=== PATIENT | male | born 1935 | race Caucasian/White ===

== ENCOUNTER 2020-12-30 12:02 | Emergency (ER) | payer OTHER ==
[2020-12-30 12:39] VITALS: BP 160/61
[2020-12-30 12:45] VITALS: BP 160/61
[2020-12-30] MEDS ORDERED: LIDOCAINE 1% VIAL ONE (13:04)
--- NOTE | 2020-12-30 13:11 | DIREP ---
PROCEDURE:XRAY FINGER-RT COMPARISON:None. INDICATIONS:fall FINDINGS: BONES:Normal. JOINTS:Dislocation ring finger PIP joint. Distal fragment is dislocated dorsally. SOFT TISSUES:Normal. OTHER:No additional findings. CONCLUSION:Dislocation ring finger PIP joint. No fracture identified. Dictated by: Russel Haywood M.D. on 12/30/2020 at 01:05 PM
--- NOTE | 2020-12-30 13:41 | ER.PDOC ---
General Chief Complaint: Extremities Stated Complaint: INJURY ON RIGHT FINGER Time seen by MD: 13:33 Source: patient Exam Limitations: no limitations History of Present Illness Occurred: just prior to arrival Where: home Context: fall Location of Injury: (R) hand, (R) fingers Past Medical History Medical History: diabetes, high cholesterol, hypertension Surgical History: no surgical history Social History Alcohol Use: none Drug Use: none Reviewed Nursing Reviewed: Vital Signs, Abn. Noted Review of Systems All Other Systems: Reviewed and Negative Physical Exam General Appearance: Alert, No Apparent Distress Hand: see diagram, tenderness, limited ROM, deformity Wrist: nml inspection, non-tender, nml ROM 1 - TENDER 1 - TENDER Neuro: sensation nml, motor nml Vascular: no vascular compromise Tendons: tendon function nml Forearm/Elbow/Arm: uninjured above wrist Skin: warm/dry Head/ENT: nml inspection, pharynx nml Neck/Back: nml inspection, non-tender Resp/CVS: no resp distress, lungs clear, heart sounds nml, reg. rate & rhythm Abdomen: non-tender, no organomegaly Joint Reduction Joint Reduction : Joint Reduction Site: Finger Conscious Sedation: No Pre-Procedure NV Exam: Yes Post-Procedure NV Exam: Yes Post Joint Reduction Film: joint reduced Results/Orders Results/Orders Orders - UZMA MCCRAY MD Xr Finger Rt (12/30/20 12:40) Lidocaine Hcl (Lidocaine 1% Vial) (12/30/20 13:04) Vital Signs Date Time Temp Pulse Resp B/P (MAP) Pulse Ox O2 Delivery O2 Flow Rate FiO2 12/30/20 12:45 99.0 67 20 160/61 (94) 99 Room Air 12/30/20 12:39 99.0 67 20 99 12/30/20 12:39 99.0 67 20 ER DEPART Departure Time of Disposition: 14:00 Disposition: 01 HOME, SELF-CARE Impression: Primary Impression: Dislocation of PIP joint of finger Condition: Stable Referrals: ESPINOZA ARIAS (PCP) PRIMARY CARE PROVIDER Duration or Time Spent with Pa: UZMA OLEA MD December 30, 2020 13:41
--- NOTE | 2020-12-30 14:08 | DIREP ---
PROCEDURE:XRAY FINGER-RT COMPARISON:[facility], CR, XRAY FINGER-RT MIN 2 VIEWS, 12/30/2020, 12:50 PM. INDICATIONS:POST SETTING FINDINGS: BONES:No fracture identified. JOINTS:Reduction of right 4th PIP joint dislocation in satisfactory alignment. SOFT TISSUES:Normal. OTHER:No additional findings. CONCLUSION:Closed reduction right 4th PIP dislocation. Dictated by: Brooke Martin MD on 12/30/2020 at 02:05 PM
== END 2020-12-30 13:45 | disposition home or self-care (01) ==
LOC: ER 12:18
DX: S63.254A Unspecified dislocation of right ring finger, initial encounter (principal); W19.XXXA Unspecified fall, initial encounter; Y93.89 Activity, other specified; Y92.89 Other specified places as the place of occurrence of the external cause; Y99.8 Other external cause status; E11.9 Type 2 diabetes mellitus without complications; E78.00 Pure hypercholesterolemia, unspecified; I10 Essential (primary) hypertension
CPT/HCPCS: 26770; 73140 ×2; 99284; J2001